=== PATIENT | female | born 1930 | race Caucasian/White ===

== ENCOUNTER 2017-09-27 09:26 | Inpatient (IN) | payer MEDICARE, OTHER ==
[~2017-09-27] VITALS: Ht 160 cm; Wt 45.5 kg
[~2017-09-27 09:26] MED LIST: CIPR-230 PO; ONDA4TAB12 PO
[2017-09-27] MEDS ORDERED: normal saline 1000ML IV soln IVB ONE (10:05)
[2017-09-27] MEDS ORDERED: ondansetron/PF 4mg/2ml inj IV ONE (10:05)
[2017-09-27 10:38] LABS: BASOPHILS % (AUTO) 0.3 % (0-1); EOSINOPHILS # (AUTO) 0.2 X10'3 (0-0.9); EOSINOPHILS % (AUTO) 1.5 % (0-6); HEMATOCRIT 48.9 % (35.0-45.0); HEMOGLOBIN 16.4 g/dl (12.0-16.0); LYMPHOCYTES % (AUTO) 7.1 % (21-51); MEAN CORPUSCULAR HEMOGLOBIN 30.2 PG (27.0-31.0); MEAN CORPUSCULAR HGB CONC 33.5 % (33.0-36.5); MEAN CORPUSCULAR VOLUME 90.2 FL (78-98); MEAN PLATELET VOLUME 7.8 FL (7.4-10.4); MONOCYTES # (AUTO) 0.3 X10'3 (0-0.9); MONOCYTES % (AUTO) 2.1 % (2-12); NEUTROPHILS # (AUTO) 12.8 X10'3 (1.8-7.7); PLATELET COUNT 307 X10'3 (140-440); RED BLOOD COUNT 5.42 X10'6 (4.20-5.60); RED CELL DISTRIBUTION WIDTH 13.8 % (11.5-14.5); WHITE BLOOD COUNT 14.4 X10'3 (4.5-11.0)
[2017-09-27 10:52] LABS: ALANINE AMINOTRANSFERASE 18 U/L (12-78); ALBUMIN 3.3 G/DL (3.4-5.0); ALBUMIN/GLOBULIN RATIO 0.9 (1.1-1.5); ALKALINE PHOSPHATASE 62 IU/L (46-116); ANION GAP 4 (8-16); ASPARTATE AMINO TRANSFERASE 19 U/L (10-37); BILIRUBIN,TOTAL 0.7 MG/DL (0.1-1.0); BLOOD UREA NITROGEN 23 MG/DL (7-18); BUN/CREATININE RATIO 23.7 (6.6-38.0); CALCIUM 9.6 MG/DL (8.5-10.1); CHLORIDE 96 MMOL/L (99-107); CREATININE 0.97 MG/DL (0.40-0.90); GLUCOSE 143 MG/DL (70-104); POTASSIUM 3.8 MMOL/L (3.5-5.1); SODIUM 137 MMOL/L (135-145); TOTAL CARBON DIOXIDE 36.9 MMOL/L (24-32); TOTAL PROTEIN 6.9 G/DL (6.4-8.2); eGFR 55 ML/MIN
[2017-09-27 11:17] LABS: LIPASE 83 U/L (73-393); PROTHROMBIN TIME 10.4 SECONDS (9.0-12.0)
[2017-09-27 11:58] LABS: CLARITY,URINE Clear (Clear); COLOR,URINE Yellow (Yellow); GLUCOSE, URINE Negative (Neg); KETONES,URINE 15 mg/dl (Neg); LEUKOCYTE ESTERASE ,URINE Negative (Neg); NITRITES, URINE Negative (Neg); OCCULT BLOOD,URINE Negative (Neg); PROTEIN,URINE Negative (Neg)
[2017-09-27] MEDS ORDERED: iohexol 300mg/ml 100ml inj. ONE (11:59)
[2017-09-27 12:00] LABS: UA COLLECTION TYPE STRAIGHT CATH
[2017-09-27] MEDS ORDERED: normal saline 1000ml 1,000 ML IV SCH (15:01)
[2017-09-27] MEDS ORDERED: acetaminophen 325mg tablet PO PRN ×2 (15:05→18:40)
[2017-09-27] MEDS ORDERED: ondansetron/PF 4mg/2ml inj IV PRN (15:05)
[2017-09-27] MEDS ORDERED: magnesium hydroxide 30ml (MOM) UD suspension PO PRN (15:05)
[2017-09-27] MEDS ORDERED: acetaminophen 650mg rectal suppository RC PRN (15:05)
[2017-09-27 16:25] VITALS: BP 121/66
[2017-09-27] MEDS: normal saline 1000ml 1,000 ML IV SCH (16:56)
[2017-09-27] MEDS: heparin, porcine 5000 units/ml vial SQ SCH (19:19)
[2017-09-27 19:30] VITALS: BP 145/65
[2017-09-27] MEDS ORDERED: piperacillin/tazo 3.375gm/50ml 50 ML IV SCH (20:00)
[2017-09-28] VITALS (17 sets, daily range): BP systolic 123–174; BP diastolic 59–78
[2017-09-28] MEDS: HYDROcodone/acetaminophen 5mg/325mg tablet PO PRN ×3 (00:04→19:05)
[2017-09-28 02:03] LABS: CHOL/HDL RATIO 2.5 (0.00-4.99); CHOLESTEROL 147 MG/DL (0-200); HDL CHOLESTEROL 58 MG/DL (35-60); LDL CHOLESTEROL 68 MG/DL (50-100); TRIGLYCERIDES 74 MG/DL (20-135)
[2017-09-28 02:36] LABS: HEMOGLOBIN A1C 5.5 % (4.5-6.2)
[2017-09-28] MEDS: normal saline 1000ml 1,000 ML IV SCH ×2 (04:16→19:05)
[2017-09-28 04:53] LABS: BASOPHILS % (AUTO) 0.1 % (0-1); EOSINOPHILS % (AUTO) 0.1 % (0-6); HEMATOCRIT 43.9 % (35.0-45.0); HEMOGLOBIN 14.6 g/dl (12.0-16.0); LYMPHOCYTES # (AUTO) 0.9 X10'3 (1.1-4.8); LYMPHOCYTES % (AUTO) 8.3 % (21-51); MEAN CORPUSCULAR HEMOGLOBIN 30.3 PG (27.0-31.0); MEAN CORPUSCULAR HGB CONC 33.4 % (33.0-36.5); MEAN CORPUSCULAR VOLUME 90.7 FL (78-98); MEAN PLATELET VOLUME 8.3 FL (7.4-10.4); MONOCYTES # (AUTO) 0.4 X10'3 (0-0.9); MONOCYTES % (AUTO) 3.7 % (2-12); NEUTROPHILS # (AUTO) 9.4 X10'3 (1.8-7.7); NEUTROPHILS % (AUTO) 87.8 % (42-75); PLATELET COUNT 296 X10'3 (140-440); RED BLOOD COUNT 4.84 X10'6 (4.20-5.60); RED CELL DISTRIBUTION WIDTH 13.8 % (11.5-14.5); WHITE BLOOD COUNT 10.6 X10'3 (4.5-11.0)
[2017-09-28 06:01] LABS: ALANINE AMINOTRANSFERASE 19 U/L (12-78); ALBUMIN 2.8 G/DL (3.4-5.0); ALBUMIN/GLOBULIN RATIO 0.9 (1.1-1.5); ALKALINE PHOSPHATASE 54 IU/L (46-116); ANION GAP 8 (8-16); ASPARTATE AMINO TRANSFERASE 16 U/L (10-37); BILIRUBIN,TOTAL 0.5 MG/DL (0.1-1.0); BLOOD UREA NITROGEN 20 MG/DL (7-18); CHLORIDE 100 MMOL/L (99-107); GLUCOSE 104 MG/DL (70-104); POTASSIUM 3.1 MMOL/L (3.5-5.1); SODIUM 141 MMOL/L (135-145); TOTAL CARBON DIOXIDE 33.5 MMOL/L (24-32); eGFR 68 ML/MIN
[2017-09-28] MEDS: heparin, porcine 5000 units/ml vial SQ SCH ×2 (08:00→20:14)
[2017-09-28] MEDS ORDERED: clindamycin phosphate 150mg/ml inj. ONE (13:59)
[2017-09-28] MEDS ORDERED: gentamicin 40 MG/1 ML inj ONE (13:59)
[2017-09-28] MEDS ORDERED: BUPIVAcaine/PF 2.5 mg/ml (0.25%) 30ml vial ONE (14:20)
[2017-09-28] MEDS ORDERED: ceFAZolin 1000mg inj ONE (14:20)
[2017-09-28] MEDS ORDERED: propofol inj 20 ML IV ONE (14:35)
[2017-09-28] MEDS ORDERED: fentaNYL/PF 50MCG/1 ML 2ML syringe ONE (14:35)
[2017-09-28] MEDS ORDERED: rocuronium 10mg/ml inj IV ONE (14:35)
[2017-09-28] MEDS ORDERED: neostigmine methylsulfate 1 MG/ML 10ml vial ONE (15:39)
[2017-09-28] MEDS ORDERED: glycopyrrolate 0.2mg/ml inj ONE (15:39)
[2017-09-28] MEDS ORDERED: ringers solution, lacted 1,000 ML IV SCH (16:14)
[2017-09-28] MEDS ORDERED: proCHLORperazine 10 MG/2 ml inj IV PRN (16:15)
[2017-09-28] MEDS ORDERED: ondansetron/PF 4mg/2ml inj IV PRN (16:15)
[2017-09-28] MEDS ORDERED: meperidine/PF 25mg/ml syringe IV PRN ×3 (16:15)
[2017-09-28] MEDS: ADDVANTAGE IV SCH (20:13)
[2017-09-28] MEDS: NORMAL SALINE IV SCH (20:13)
[2017-09-28] MEDS: CEFOXITIN IV SCH (20:13)
[2017-09-29] VITALS: BP 138/66
[2017-09-29] MEDS: HYDROcodone/acetaminophen 5mg/325mg tablet PO PRN ×3 (01:14→11:00)
[2017-09-29] MEDS: NORMAL SALINE IV SCH ×4 (02:27→19:54)
[2017-09-29] MEDS: CEFOXITIN IV SCH ×4 (02:27→19:54)
[2017-09-29] MEDS: ADDVANTAGE IV SCH ×4 (02:27→19:54)
[2017-09-29 06:06] LABS: BASOPHILS # (AUTO) 0.1 X10'3 (0-0.2); BASOPHILS % (AUTO) 0.8 % (0-1); EOSINOPHILS # (AUTO) 0.2 X10'3 (0-0.9); EOSINOPHILS % (AUTO) 1.7 % (0-6); HEMATOCRIT 39.5 % (35.0-45.0); HEMOGLOBIN 13.1 g/dl (12.0-16.0); LYMPHOCYTES % (AUTO) 8.8 % (21-51); MEAN CORPUSCULAR HGB CONC 33.3 % (33.0-36.5); MEAN CORPUSCULAR VOLUME 90.2 FL (78-98); MEAN PLATELET VOLUME 7.8 FL (7.4-10.4); MONOCYTES # (AUTO) 0.3 X10'3 (0-0.9); MONOCYTES % (AUTO) 2.7 % (2-12); NEUTROPHILS # (AUTO) 9.8 X10'3 (1.8-7.7); PLATELET COUNT 281 X10'3 (140-440); RED BLOOD COUNT 4.38 X10'6 (4.20-5.60); RED CELL DISTRIBUTION WIDTH 13.6 % (11.5-14.5); WHITE BLOOD COUNT 11.4 X10'3 (4.5-11.0)
[2017-09-29 07:00] VITALS: BP 141/62
[2017-09-29 07:03] LABS: ALANINE AMINOTRANSFERASE 15 U/L (12-78); ALBUMIN 2.4 G/DL (3.4-5.0); ALBUMIN/GLOBULIN RATIO 0.9 (1.1-1.5); ALKALINE PHOSPHATASE 45 IU/L (46-116); ANION GAP 10 (8-16); ASPARTATE AMINO TRANSFERASE 20 U/L (10-37); BILIRUBIN,TOTAL 0.6 MG/DL (0.1-1.0); BLOOD UREA NITROGEN 15 MG/DL (7-18); BUN/CREATININE RATIO 26.3 (6.6-38.0); CALCIUM 8.2 MG/DL (8.5-10.1); CHLORIDE 104 MMOL/L (99-107); CREATININE 0.57 MG/DL (0.40-0.90); GLUCOSE 75 MG/DL (70-104); POTASSIUM 3.3 MMOL/L (3.5-5.1); SODIUM 142 MMOL/L (135-145); TOTAL CARBON DIOXIDE 28.2 MMOL/L (24-32); TOTAL PROTEIN 5.2 G/DL (6.4-8.2); eGFR > 90 ML/MIN
[2017-09-29 08:09] LABS: BASOPHILS % (AUTO) 0.4 % (0-1); EOSINOPHILS # (AUTO) 0.1 X10'3 (0-0.9); EOSINOPHILS % (AUTO) 1.2 % (0-6); HEMATOCRIT 39.6 % (35.0-45.0); HEMOGLOBIN 13.3 g/dl (12.0-16.0); LYMPHOCYTES # (AUTO) 0.9 X10'3 (1.1-4.8); LYMPHOCYTES % (AUTO) 8.1 % (21-51); MEAN CORPUSCULAR HEMOGLOBIN 30.3 PG (27.0-31.0); MEAN CORPUSCULAR HGB CONC 33.5 % (33.0-36.5); MEAN CORPUSCULAR VOLUME 90.5 FL (78-98); MEAN PLATELET VOLUME 8.2 FL (7.4-10.4); MONOCYTES # (AUTO) 0.4 X10'3 (0-0.9); MONOCYTES % (AUTO) 3.9 % (2-12); NEUTROPHILS # (AUTO) 9.7 X10'3 (1.8-7.7); NEUTROPHILS % (AUTO) 86.4 % (42-75); PLATELET COUNT 291 X10'3 (140-440); RED BLOOD COUNT 4.38 X10'6 (4.20-5.60); RED CELL DISTRIBUTION WIDTH 13.8 % (11.5-14.5); WHITE BLOOD COUNT 11.3 X10'3 (4.5-11.0)
[2017-09-29] MEDS: heparin, porcine 5000 units/ml vial SQ SCH ×2 (09:00→19:53)
[2017-09-29] MEDS: normal saline 1000ml 1,000 ML IV SCH ×2 (09:01→20:04)
[2017-09-29] MEDS ORDERED: NO HOME MEDS (13:06)
[2017-09-29] MEDS ORDERED: magnesium 2GM in 50ml NS 50 ML IV PRN (18:10)
[2017-09-29] MEDS ORDERED: potassium Cl 20 mEq SR tablet PO PRN (18:10)
[2017-09-29] MEDS ORDERED: magnesium Cl slow-release 64mg tablet PO PRN (18:10)
[2017-09-29] MEDS ORDERED: potassium Cl 40MEQ/NS 500ml 500 ML IV PRN ×2 (18:10)
[2017-09-29 19:00] VITALS: BP 145/82
[2017-09-30 00:26] VITALS: BP 145/72
[2017-09-30] MEDS: ADDVANTAGE IV SCH ×4 (01:39→19:16)
[2017-09-30] MEDS: NORMAL SALINE IV SCH ×4 (01:39→19:16)
[2017-09-30] MEDS: CEFOXITIN IV SCH ×4 (01:39→19:16)
[2017-09-30 06:22] LABS: BASOPHILS % (AUTO) 0.3 % (0-1); EOSINOPHILS # (AUTO) 0.2 X10'3 (0-0.9); EOSINOPHILS % (AUTO) 1.6 % (0-6); HEMATOCRIT 41.4 % (35.0-45.0); LYMPHOCYTES # (AUTO) 1.3 X10'3 (1.1-4.8); LYMPHOCYTES % (AUTO) 12.4 % (21-51); MEAN CORPUSCULAR HEMOGLOBIN 30.6 PG (27.0-31.0); MEAN CORPUSCULAR HGB CONC 33.7 % (33.0-36.5); MEAN CORPUSCULAR VOLUME 90.7 FL (78-98); MEAN PLATELET VOLUME 8.2 FL (7.4-10.4); MONOCYTES # (AUTO) 0.5 X10'3 (0-0.9); MONOCYTES % (AUTO) 5.1 % (2-12); NEUTROPHILS # (AUTO) 8.4 X10'3 (1.8-7.7); NEUTROPHILS % (AUTO) 80.6 % (42-75); PLATELET COUNT 298 X10'3 (140-440); RED BLOOD COUNT 4.57 X10'6 (4.20-5.60); RED CELL DISTRIBUTION WIDTH 13.7 % (11.5-14.5); WHITE BLOOD COUNT 10.5 X10'3 (4.5-11.0)
[2017-09-30 06:46] LABS: ALANINE AMINOTRANSFERASE 16 U/L (12-78); ALBUMIN 2.5 G/DL (3.4-5.0); ALBUMIN/GLOBULIN RATIO 0.8 (1.1-1.5); ALKALINE PHOSPHATASE 52 IU/L (46-116); ANION GAP 12 (8-16); ASPARTATE AMINO TRANSFERASE 21 U/L (10-37); BILIRUBIN,TOTAL 0.5 MG/DL (0.1-1.0); BLOOD UREA NITROGEN 10 MG/DL (7-18); BUN/CREATININE RATIO 16.7 (6.6-38.0); CALCIUM 8.1 MG/DL (8.5-10.1); CHLORIDE 105 MMOL/L (99-107); GLUCOSE 64 MG/DL (70-104); POTASSIUM 3.5 MMOL/L (3.5-5.1); SODIUM 142 MMOL/L (135-145); TOTAL CARBON DIOXIDE 25.5 MMOL/L (24-32); TOTAL PROTEIN 5.6 G/DL (6.4-8.2); eGFR > 90 ML/MIN
[2017-09-30 07:00] VITALS: BP 144/57
[2017-09-30] MEDS: heparin, porcine 5000 units/ml vial SQ SCH ×2 (07:08→19:17)
[2017-09-30] MEDS: lactobacillus rhamnosus 10,000 MMU CELLS/CAPSULE PO SCH ×2 (07:30→17:18)
[2017-09-30 11:00] VITALS: BP 128/55
[2017-09-30] MEDS: normal saline 1000ml 1,000 ML IV SCH ×2 (17:14→23:35)
[2017-09-30 20:00] VITALS: BP 147/67
[2017-09-30] MEDS ORDERED: temazepam 15mg capsule PO ONE (22:25)
[2017-10-01] VITALS: BP 153/80
[2017-10-01] MEDS: ADDVANTAGE IV SCH ×4 (02:13→19:22)
[2017-10-01] MEDS: CEFOXITIN IV SCH ×4 (02:13→19:22)
[2017-10-01] MEDS: NORMAL SALINE IV SCH ×4 (02:13→19:22)
[2017-10-01 06:07] LABS: BASOPHILS % (AUTO) 0.3 % (0-1); EOSINOPHILS # (AUTO) 0.2 X10'3 (0-0.9); EOSINOPHILS % (AUTO) 2.3 % (0-6); HEMATOCRIT 38.4 % (35.0-45.0); HEMOGLOBIN 12.9 g/dl (12.0-16.0); LYMPHOCYTES # (AUTO) 0.6 X10'3 (1.1-4.8); LYMPHOCYTES % (AUTO) 8.1 % (21-51); MEAN CORPUSCULAR HEMOGLOBIN 30.3 PG (27.0-31.0); MEAN CORPUSCULAR HGB CONC 33.7 % (33.0-36.5); MEAN CORPUSCULAR VOLUME 89.7 FL (78-98); MEAN PLATELET VOLUME 7.8 FL (7.4-10.4); MONOCYTES # (AUTO) 0.3 X10'3 (0-0.9); MONOCYTES % (AUTO) 4.3 % (2-12); NEUTROPHILS # (AUTO) 6.8 X10'3 (1.8-7.7); PLATELET COUNT 250 X10'3 (140-440); RED BLOOD COUNT 4.28 X10'6 (4.20-5.60); RED CELL DISTRIBUTION WIDTH 13.4 % (11.5-14.5)
[2017-10-01 06:23] LABS: CHLORIDE 105 MMOL/L (99-107); GLUCOSE 76 MG/DL (70-104); POTASSIUM 3.3 MMOL/L (3.5-5.1); SODIUM 141 MMOL/L (135-145)
[2017-10-01 06:24] LABS: ALANINE AMINOTRANSFERASE 13 U/L (12-78); ALBUMIN 2.3 G/DL (3.4-5.0); ALBUMIN/GLOBULIN RATIO 0.8 (1.1-1.5); ALKALINE PHOSPHATASE 46 IU/L (46-116); ANION GAP 8 (8-16); ASPARTATE AMINO TRANSFERASE 12 U/L (10-37); BILIRUBIN,TOTAL 0.6 MG/DL (0.1-1.0); BLOOD UREA NITROGEN 6 MG/DL (7-18); BUN/CREATININE RATIO 10.9 (6.6-38.0); CALCIUM 7.8 MG/DL (8.5-10.1); CREATININE 0.55 MG/DL (0.40-0.90); TOTAL CARBON DIOXIDE 27.9 MMOL/L (24-32); TOTAL PROTEIN 5.2 G/DL (6.4-8.2); eGFR > 90 ML/MIN
[2017-10-01 07:00] VITALS: BP 146/70
[2017-10-01] MEDS: lactobacillus rhamnosus 10,000 MMU CELLS/CAPSULE PO SCH (07:47)
[2017-10-01] MEDS: heparin, porcine 5000 units/ml vial SQ SCH ×2 (07:48→19:21)
[2017-10-01] MEDS: normal saline 1000ml 1,000 ML IV SCH ×2 (07:48→16:21)
[2017-10-01 11:56] VITALS: BP 127/70
[2017-10-01] MEDS ORDERED: LIDOcaine 1% 30ml vial 5 ML in potassium Cl 40MEQ/NS 500ml 500 ML IV PRN (13:22)
[2017-10-01] MEDS: HYDROcodone/acetaminophen 5mg/325mg tablet PO PRN (19:22)
[2017-10-01 20:00] VITALS: BP 134/92
[2017-10-01 23:00] VITALS: BP 152/73
[2017-10-02] MEDS: NORMAL SALINE IV SCH ×3 (02:34→14:39)
[2017-10-02] MEDS: CEFOXITIN IV SCH ×3 (02:34→14:39)
[2017-10-02] MEDS: ADDVANTAGE IV SCH ×3 (02:34→14:39)
[2017-10-02 06:14] LABS: BASOPHILS % (AUTO) 0.4 % (0-1); EOSINOPHILS # (AUTO) 0.2 X10'3 (0-0.9); EOSINOPHILS % (AUTO) 2.8 % (0-6); HEMATOCRIT 40.6 % (35.0-45.0); HEMOGLOBIN 13.6 g/dl (12.0-16.0); LYMPHOCYTES # (AUTO) 0.7 X10'3 (1.1-4.8); LYMPHOCYTES % (AUTO) 11.1 % (21-51); MEAN CORPUSCULAR HEMOGLOBIN 30.2 PG (27.0-31.0); MEAN CORPUSCULAR HGB CONC 33.6 % (33.0-36.5); MEAN CORPUSCULAR VOLUME 89.8 FL (78-98); MEAN PLATELET VOLUME 7.8 FL (7.4-10.4); MONOCYTES # (AUTO) 0.3 X10'3 (0-0.9); MONOCYTES % (AUTO) 5.2 % (2-12); NEUTROPHILS # (AUTO) 5.3 X10'3 (1.8-7.7); NEUTROPHILS % (AUTO) 80.5 % (42-75); PLATELET COUNT 292 X10'3 (140-440); RED BLOOD COUNT 4.52 X10'6 (4.20-5.60); RED CELL DISTRIBUTION WIDTH 13.8 % (11.5-14.5); WHITE BLOOD COUNT 6.6 X10'3 (4.5-11.0)
[2017-10-02 07:27] LABS: ALANINE AMINOTRANSFERASE 20 U/L (12-78); ALBUMIN 2.5 G/DL (3.4-5.0); ALBUMIN/GLOBULIN RATIO 0.8 (1.1-1.5); ALKALINE PHOSPHATASE 53 IU/L (46-116); ANION GAP 15 (8-16); ASPARTATE AMINO TRANSFERASE 23 U/L (10-37); BILIRUBIN,TOTAL 0.7 MG/DL (0.1-1.0); BLOOD UREA NITROGEN 4 MG/DL (7-18); BUN/CREATININE RATIO 7.4 (6.6-38.0); CALCIUM 7.9 MG/DL (8.5-10.1); CHLORIDE 105 MMOL/L (99-107); CREATININE 0.54 MG/DL (0.40-0.90); GLUCOSE 82 MG/DL (70-104); POTASSIUM 3.1 MMOL/L (3.5-5.1); SODIUM 143 MMOL/L (135-145); TOTAL CARBON DIOXIDE 22.6 MMOL/L (24-32); TOTAL PROTEIN 5.6 G/DL (6.4-8.2); eGFR > 90 ML/MIN
[2017-10-02 07:52] VITALS: BP 143/75
[2017-10-02] MEDS: LACTOBACILLUS RHAMNOSUS GG 15 billion unit sprinkle caps PO SCH (08:24)
[2017-10-02] MEDS: potassium Cl 20 mEq SR tablet PO PRN ×3 (08:25→19:38)
[2017-10-02] MEDS: heparin, porcine 5000 units/ml vial SQ SCH ×2 (08:25→19:44)
[2017-10-02 10:47] LABS: MAGNESIUM 1.4 MG/DL (1.5-2.4)
[2017-10-02 11:00] VITALS: BP 119/52
[2017-10-02] MEDS: normal saline 1000ml 1,000 ML IV SCH (13:41)
[2017-10-02] MEDS: HYDROcodone/acetaminophen 5mg/325mg tablet PO PRN ×2 (14:41→21:42)
[2017-10-02] MEDS ORDERED: potassium Cl 20 mEq SR tablet PO PRN (19:20)
[2017-10-02] MEDS ORDERED: potassium Cl 40MEQ/NS 500ml 500 ML IV PRN ×2 (19:20)
[2017-10-02 20:00] VITALS: BP 131/75
[2017-10-02] MEDS: mag hydrox/Alum hydrox/simeth 30ml oral suspension PO PRN (23:24)
[2017-10-03] VITALS: BP 131/75
[2017-10-03] MEDS: HYDROcodone/acetaminophen 5mg/325mg tablet PO PRN ×4 (05:03→23:41)
[2017-10-03 06:09] LABS: MAGNESIUM 1.6 MG/DL (1.5-2.4); POTASSIUM 3.8 MMOL/L (3.5-5.1)
[2017-10-03 07:33] VITALS: BP 137/71
[2017-10-03] MEDS: heparin, porcine 5000 units/ml vial SQ SCH ×2 (08:10→19:39)
[2017-10-03] MEDS: LACTOBACILLUS RHAMNOSUS GG 15 billion unit sprinkle caps PO SCH (08:10)
[2017-10-03 11:00] VITALS: BP 131/65
[2017-10-03] MEDS ORDERED: metoclopramide 5 mg/ml inj IV STA (12:15)
[2017-10-03] MEDS ORDERED: magnesium hydroxide 30ml (MOM) UD suspension PO ONE (13:00)
[2017-10-03] MEDS ORDERED: metoclopramide 5 mg/ml inj IV ONE (18:15)
[2017-10-03 20:00] VITALS: BP 143/57
[2017-10-03] MEDS: mag hydrox/Alum hydrox/simeth 30ml oral suspension PO PRN (21:12)
[2017-10-04] VITALS: BP 141/82
[2017-10-04 06:34] LABS: POTASSIUM 3.4 MMOL/L (3.5-5.1)
[2017-10-04 07:24] VITALS: BP 138/76
[2017-10-04] MEDS: heparin, porcine 5000 units/ml vial SQ SCH (08:30)
[2017-10-04] MEDS: LACTOBACILLUS RHAMNOSUS GG 15 billion unit sprinkle caps PO SCH (08:30)
[2017-10-04] MEDS: potassium Cl 20 mEq SR tablet PO PRN (08:31)
[2017-10-04 11:00] VITALS: BP 129/76
== END 2017-10-04 15:23 | disposition home or self-care (01) | DRG 350 ==
LOC: ER 09:27 → ED HOLD 14:58 → EDBEDREQ 15:06 → MED 3N 16:10
PROVIDERS: ADMIT Family Medicine; ATTEND Internal Medicine
PROC: BW211ZZ Computerized Tomography (CT Scan) of Abdomen and Pelvis using Low Osmolar Contrast (ICD-10-PCS; 2017-09-27)
PROC: 0YQ70ZZ Repair Right Femoral Region, Open Approach (ICD-10-PCS; principal; 2017-09-28 14:32)
DX: K41.30 Unilateral femoral hernia, with obstruction, without gangrene, not specified as recurrent (principal); N17.0 Acute kidney failure with tubular necrosis; K56.7 Ileus, unspecified; K57.30 Diverticulosis of large intestine without perforation or abscess without bleeding; I10 Essential (primary) hypertension; R91.8 Other nonspecific abnormal finding of lung field; Z79.899 Other long term (current) drug therapy; Z87.891 Personal history of nicotine dependence
CPT/HCPCS: 36415; 71045; 74018; 74177; 80053; 80061; 81003; 83036; 83690; 83735; 84132; 84443; 85025; 85610; 87070; 87075; 88302; 93005; 96361; 96374; 97116; 97162; 99285; A6258; A7000; J0690; J0694; J1580; J1644; J2270; J2405; J2704; J2710; J2765; J3010; J3475; J3480; J3490; J7030; J7120; Q9967

== ENCOUNTER 2018-01-06 10:21 | Emergency (ER) | payer MEDICARE, OTHER ==
[~2018-01-06] VITALS: Ht 162.6 cm; Wt 25.9 kg
[~2018-01-06 10:21] MED LIST changes: +ACET-2119 PO; +ASPI-611 PO; -CIPR-230 PO; -ONDA4TAB12 PO
[2018-01-06 10:31] VITALS: BP 152/77
[2018-01-06] MEDS ORDERED: ACET-75 PO (12:49)
[2018-01-06] MEDS ORDERED: HYDROcodone/acetaminophen 5mg/325mg tablet PO ONE (12:50)
== END 2018-01-06 13:05 | disposition home or self-care (01) ==
LOC: ER 10:22
DX: S70.01XA Contusion of right hip, initial encounter (principal); Z79.84 Long term (current) use of oral hypoglycemic drugs; W18.30XA Fall on same level, unspecified, initial encounter; Y93.89 Activity, other specified; Y92.89 Other specified places as the place of occurrence of the external cause; Y99.8 Other external cause status
CPT/HCPCS: 73502; 99284